=== PATIENT | female | born 1950 | race Caucasian/White ===

== ENCOUNTER 2020-01-17 13:23 | Emergency (ER) | payer MEDICARE, OTHER ==
--- NOTE | 2020-01-17 13:28 | ERPHSYRPT ---
- History of Present Illness Time Seen by Provider: 01/17/20 13:28 Source: patient Exam Limitations: no limitations Physician History: This is a 69-year-old white female who presents with pain to her right lower back that shoots down her buttock into her posterior right hamstring. Last week in the beginning of this week the patient has been doing a lot of yard work lifting twisting turning. She did not fall or have trauma to her back. Denies urinary pressure, denies abdominal pain denies hematuria, dysuria, flank pain. Patient denies any foot drop symptoms or any numbness in the genitalia or perineal area. He describes the pain as an ache in the lower back on the right side and is shooting pain with movement down her right buttock and right hamstring. Method of Injury: bending, lifting, twisted, turning Quality: dull (Ache), sharp, other (Shooting) Back Pain Radiation: buttocks (8), upper legs Severity of Pain-Max: moderate Severity of Pain-Current: moderate Modifying Factors: Improves With: movement Associated Symptoms: muscle spasms, No numbness in legs/feet, No sensory/motor loss, No tingling in legs/feet, No lower back pain Previous symptoms: no prior history Home Medications: Aspirin 81 gm Chew [Baby Aspirin 81 mg Chew] 1 ea DAILY 01/17/20 [History] Levothyroxine Sodium 100 mg DAILY 01/17/20 [History] Simvastatin 20 mg DAILY 01/17/20 [History] Travel Risk - International Travel Have you traveled outside of the country in past 3 weeks: No Have you or anyone close to you been diagnosed with or: No Do your reside in a community with a known COVID-19 case?: Yes If Yes where:: [facility] - Coronavirus Screening Has patient experienced Coronavirus symptoms: No - Review of Systems Constitutional: No Symptoms Eyes: No Symptoms Ears, Nose, & Throat: No Symptoms Respiratory: No Symptoms Cardiac: No Symptoms Abdominal/Gastrointestinal: No Symptoms Genitourinary Symptoms: No Symptoms Musculoskeletal: Back Pain Skin: No Symptoms Neurological: No Symptoms Psychological: No Symptoms Endocrine: No Symptoms Hematologic/Lymphatic: No Symptoms Immunological/Allergic: No Symptoms All Other Systems: Reviewed and Negative - Past Medical History Pertinent Past Medical History: Yes Neurological History: No Pertinent History ENT History: No Pertinent History Cardiac History: No Pertinent History Respiratory History: No Pertinent History Endocrine Medical History: No Pertinent History Musculoskeletal History: No Pertinent History GI Medical History: No Pertinent History History: No Pertinent History Psycho-Social History: No Pertinent History Female Reproductive Disorders: No Pertinent History - Past Surgical History Neuro Surgical History: No Pertinent History Cardiac: No Pertinent History Respiratory: No Pertinent History Gastrointestinal: No Pertinent History Genitourinary: No Pertinent History Musculoskeletal: No Pertinent History Female Surgical History: No Pertinent History - Nursing Vital Signs Nursing Vital Signs: Initial Vital Signs Temperature 97.9 F 01/17/20 13:24 Pulse Rate 85 01/17/20 13:24 Respiratory Rate 18 01/17/20 13:24 Blood Pressure 194/88 01/17/20 13:24 O2 Sat by Pulse Oximetry 97 01/17/20 13:24 Pain Scale Pain Intensity [Right Back] 7 Pain Intensity 7 - Physical Exam General Appearance: no apparent distress, alert, anxiety Eye Exam: PERRL/EOMI, eyes nml inspection Ears, Nose, Throat Exam: normal ENT inspection, moist mucous membranes Neck Exam: normal inspection, non-tender, supple, full range of motion Respiratory Exam: No chest tenderness Gastrointestinal Exam: No tenderness Pelvic Exam: not done Rectal Exam: not done Back Exam: normal inspection, normal range of motion, muscle spasm (Right lumbar region paraspinous muscles), No CVA tenderness, No vertebral tenderness Extremity Exam: normal inspection, normal range of motion, pelvis stable Neurologic Exam: alert, oriented x 3, cooperative, cooker meal II-XII nml as tested, normal mood/affect, nml cerebellar function, nml station & gait Skin Exam: normal color, warm, dry Lymphatic Exam: No adenopathy SpO2 Interpretation: normal - Course Nursing assessment & vital signs reviewed: Yes - Progress Progress: unchanged Progress Note: 01/17/20 13:47 I reviewed the patient's history and performed a physical exam of this patient. Patient did not have any kind of trauma to her back or buttock, pelvic region. It is not likely that she has any fractures, dislocations or subluxation. I did offer her radigraphic studies. She declines at this time. I also offered her to check her urine for infection. She declines at this time. She said she does not have flank pain, dysuria, frequency and she is never had a urinary tract infection per her report. 01/17/20 13:52 Counseled pt/family regarding: diagnosis, need for follow-up - Departure Departure Disposition: Home Clinical Impression: Sciatica Condition: Stable Critical Care Time: No Referrals: AMADO DOUGLAS [Primary Care Provider] - Additional Instructions: Your medications as prescribed. Follow-up at the [facility] orthopedic clinic tomorrow for further evaluation. Return to the emergency department if symptoms worsen or do not improve or follow-up with your primary care physician for further management. Prescriptions: Carisoprodol 350 mg [Soma 350 mg] 350 mg PO Q12H PRN PRN #6 tablet PRN Reason: Muscle Spasms Prednisone 10 mg [Deltasone 10 mg] 10 mg PO TID #12 tablet
[2020-01-17] MEDS ORDERED: Hydromorphone 1 mg/ml Ampule IM ONE (13:54)
[2020-01-17] MEDS ORDERED: ZOFRAN ODT 4 MG PO ONE (13:54)
[2020-01-17] MEDS ORDERED: Zofran 4 MG/2 ML VIAL ONE (14:01)
[2020-01-17] MEDS ORDERED: Hydromorphone 1 mg/ml Ampule ONE (14:02)
[2020-01-17] MEDS ORDERED: DELTASONE 20 MG ONE (14:02)
[2020-01-17] MEDS ORDERED: ZOFRAN ODT 4 MG ONE (14:04)
[2020-01-17 14:28] VITALS: BP 165/75; PULSE 72; O2SAT 98
[2020-01-18] MEDS ORDERED: DELTASONE 20 MG PO ONE (13:55)
== END 2020-01-17 14:28 | disposition home or self-care (01) ==
LOC: ED 13:23
DX: M54.41 Lumbago with sciatica, right side (principal); X50.0XXA Overexertion from strenuous movement or load, initial encounter; X50.9XXA Other and unspecified overexertion or strenuous movements or postures, initial encounter; Y93.9 Activity, unspecified; Y92.9 Unspecified place or not applicable; Y99.9 Unspecified external cause status
CPT/HCPCS: 96372; 99284; J1170; J2405; Q0162; A9270-GY

== ENCOUNTER 2021-07-17 07:37 | Emergency (ER) | payer MEDICARE, OTHER ==
--- NOTE | 2021-07-17 07:56 | ERPHSYRPT ---
- History of Present Illness Time Seen by Provider: 07/17/21 07:56 Historian: patient Exam Limitations: no limitations Physician History: This is a 70-year-old white female who presents with 1 month history of mild substernal central nonradiating chest pressure. Nothing seems to worsen or improve. She is never had this before. In the last 2 days she noticed the pres sure becoming more intense and less intermittent. She has no cough. She has no fever. She has no abdominal pain. Patient does have a history of hypothyroidism, hypercholesterolemia. She is not diabetic and she does not have hypertension. She does not smoke. The patient still has her gallbladder in place. She has never seen a adobe cq developer. Activities at Onset: none Quality: pressure Location: substernal, central Chest Pain Radiation: no radiation Severity of Pain-Max: mild Severity of Pain-Current: mild Modifying Factors: Improves With: nothing Associated Symptoms: denies symptoms Prior Chest Pain/Cardiac Workup: no prior chest pain, no prior cardiac workup Nitro Today/Relief: no nitro taken today Aspirin Treatment Today: no aspirin today, 325 mg x 1, provided by ED Allergies/Adverse Reactions: No Known Drug Allergies Allergy (Verified 07/17/21 08:02) Home Medications: Aspirin 81 gm Chew [Baby Aspirin 81 mg Chew] 1 ea PO HS 01/17/20 [History] Levothyroxine Sodium 100 mg DAILY 01/17/20 [History] Simvastatin 20 mg DAILY 01/17/20 [History] Hx Tetanus, Diphtheria Vaccination/Date Given: No Hx Influenza Vaccination/Date Given: No Hx Pneumococcal Vaccination/Date Given: No Travel Risk - International Travel Have you traveled outside of the country in past 3 weeks: No - Coronavirus Screening Are you exhibiting any of the following symptoms?: No Close contact with a COVID-19 positive Pt in past 14-21 Days: No - Review of Systems Constitutional: No Symptoms Eyes: No Symptoms Ears, Nose, & Throat: No Symptoms Respiratory: No Symptoms Cardiac: Chest Pain (Described as pressure) Abdominal/Gastrointestinal: No Symptoms Genitourinary Symptoms: No Symptoms Musculoskeletal: No Symptoms Skin: No Symptoms Neurological: No Symptoms Psychological: No Symptoms Endocrine: No Symptoms Hematologic/Lymphatic: No Symptoms Immunological/Allergic: No Symptoms All Other Systems: Reviewed and Negative - Past Medical History Pertinent Past Medical History: Yes Neurological History: No Pertinent History ENT History: No Pertinent History Cardiac History: High Cholesterol Respiratory History: No Pertinent History Endocrine Medical History: Hypothyroidism Musculoskeletal History: Other GI Medical History: No Pertinent History History: No Pertinent History Psycho-Social History: No Pertinent History Female Reproductive Disorders: No Pertinent History Other Medical History: SX HX RIGHT ARTHROSCOPY FOR TORN MENSICUS 2 YEARS AGO. - Past Surgical History Past Surgical History: Yes Neuro Surgical History: No Pertinent History Cardiac: No Pertinent History Respiratory: No Pertinent History Gastrointestinal: No Pertinent History Genitourinary: No Pertinent History Musculoskeletal: No Pertinent History Female Surgical History: No Pertinent History Other Surgical History: knee - Social History Smoking Status: Never smoker Exposure to second hand smoke: No Drug Use: none Patient Lives Alone: No - Nursing Vital Signs Nursing Vital Signs: Initial Vital Signs Temperature 98.3 F 07/17/21 07:38 Pulse Rate 82 07/17/21 07:38 Respiratory Rate 24 07/17/21 07:38 Blood Pressure 155/72 07/17/21 07:38 O2 Sat by Pulse Oximetry 98 07/17/21 07:38 Pain Scale Pain Intensity 6 - Physical Exam General Appearance: no apparent distress, alert, anxiety Eye Exam: PERRL/EOMI, eyes nml inspection Ears, Nose, Throat Exam: normal ENT inspection, moist mucous membranes Neck Exam: normal inspection, non-tender, supple, full range of motion Respiratory Exam: normal breath sounds, chest tenderness (Nonradiating substernal central), lungs clear ( chest pressure), airway intact, No respiratory distress Cardiovascular Exam: regular rate/rhythm, normal heart sounds, normal peripheral pulses Gastrointestinal/Abdomen Exam: soft, normal bowel sounds, No tenderness Pelvic Exam: not done Rectal Exam: not done Back Exam: normal inspection, normal range of motion, No CVA tenderness, No vertebral tenderness Extremity Exam: normal inspection, normal range of motion, pelvis stable Neurologic Exam: alert, oriented x 3, cooperative, broth setter II-XII nml as tested, normal mood/affect, nml cerebellar function, nml station & gait, sensation nml Skin Exam: normal color, warm, dry Lymphatic Exam: No adenopathy SpO2 Interpretation: normal O2 Delivery: Room Air - Course Nursing assessment & vital signs reviewed: Yes EKG Interpreted by Me: RATE (77), Sinus Rhythm, NORMAL AXIS, NORMAL INTERVALS, NORMAL QRS, NORMAL ST-T, Other (No acute ischemic changes. No comparison EKG available.) Ordered Tests: Active Orders 24 hr Category Date Time Status EKG-ER Only STAT Care 07/17/21 07:58 Active IV Insertion STAT Care 07/17/21 07:58 Active Pulse Oximetry (ED) STAT Care 07/17/21 07:58 Active CHEST 1 VIEW (PORTABLE) Stat Exams 07/17/21 07:58 Completed CBC W DIFF Stat Lab 07/17/21 07:45 Completed CMP Stat Lab 07/17/21 07:45 Completed D-DIMER QUANTITATIVE Stat Lab 07/17/21 07:45 Completed NT PRO BNP Stat Lab 07/17/21 07:45 Completed PROTIME WITH INR Stat Lab 07/17/21 07:45 Completed T4 (Thyroxine) Stat Lab 07/17/21 07:45 Completed TROPONIN Q3H Lab 07/17/21 07:45 Completed TROPONIN Q3H Lab 07/17/21 11:05 Completed TROPONIN Q3H Lab 07/17/21 14:00 Ordered TROPONIN Q3H Lab 07/17/21 17:00 Ordered TROPONIN Q3H Lab 07/17/21 20:00 Ordered TSH, 3RD Generation Stat Lab 07/17/21 07:45 Completed Medication Summary Discontinued Medications Generic Name Dose Route Start Last Admin Trade Name Freq PRN Reason Stop Dose Admin Aspirin 324 mg 07/17/21 07:58 07/17/21 08:02 Aspirin 81 Mg Tab.Chew PO 07/17/21 07:59 324 mg STAT ONE Administration Lab/Rad Data: Laboratory Result Diagrams 07/17/21 07:45 07/17/21 07:45 Laboratory Results 07/17/21 07/17/21 07/17/21 Range/Units 11:05 07:45 07:45 WBC (4.0-10.5) K/mm3 RBC (4.1-5.4) M/mm3 Hgb (12.0-16.0) gm/dl Hct (35-47) % MCV (78-100) fl MCH (26-32) pg MCHC (32-36) g/dl RDW (11.5-14.0) % Plt Count (150-450) K/mm3 MPV (7.5-11.0) fl Gran % (36.0-66.0) % Eos # (Auto) (0-0.5) Absolute Lymphs (auto) (1.0-4.6) Absolute Monos (auto) (0.0-1.3) Lymphocytes % (24.0-44.0) % Monocytes % (0.0-12.0) % Eosinophils % (0.00-5.0) % Basophils % (0.0-0.4) % Absolute Granulocytes (1.4-6.9) Basophils # (0-0.4) PT 11.6 (9.4-12.5) SECONDS INR 0.98 (0.8-3.0) D-Dimer 228 (215-500) ng/mL Sodium (137-145) mmol/L Potassium (3.5-5.1) mmol/L Chloride (98-107) mmol/L Carbon Dioxide (22-30) mmol/L Anion Gap (5-15) MEQ/L BUN (7-17) mg/dL Creatinine (0.52-1.04) mg/dL Estimated GFR ML/MIN Glucose (74-106) mg/dL Calcium (8.4-10.2) mg/dL Total Bilirubin (0.2-1.3) mg/dL AST (14-36) U/L ALT (0-35) U/L Alkaline Phosphatase (38-126) U/L Troponin I < 0.012 < 0.012 (0.000-0.034) ng/mL NT-Pro-B Natriuret Pep (0-900) pg/mL Serum Total Protein (6.3-8.2) g/dL Albumin (3.5-5.0) g/dL Thyroxine (T4) (5.53-10.96) ug/dL TSH 3rd Generation (0.47-4.68) mIU/L 07/17/21 07/17/21 Range/Units 07:45 07:45 WBC 6.3 (4.0-10.5) K/mm3 RBC 4.78 (4.1-5.4) M/mm3 Hgb 14.3 (12.0-16.0) gm/dl Hct 43.5 (35-47) % MCV 91.0 (78-100) fl MCH 29.9 (26-32) pg MCHC 32.9 (32-36) g/dl RDW 13.5 (11.5-14.0) % Plt Count 192 (150-450) K/mm3 MPV 11.3 H (7.5-11.0) fl Gran % 62.8 (36.0-66.0) % Eos # (Auto) 0.13 (0-0.5) Absolute Lymphs (auto) 1.57 (1.0-4.6) Absolute Monos (auto) 0.61 (0.0-1.3) Lymphocytes % 24.8 (24.0-44.0) % Monocytes % 9.7 (0.0-12.0) % Eosinophils % 2.1 (0.00-5.0) % Basophils % 0.6 (0.0-0.4) % Absolute Granulocytes 3.97 (1.4-6.9) Basophils # 0.04 (0-0.4) PT (9.4-12.5) SECONDS INR (0.8-3.0) D-Dimer (215-500) ng/mL Sodium 141 (137-145) mmol/L Potassium 4.3 (3.5-5.1) mmol/L Chloride 104 (98-107) mmol/L Carbon Dioxide 30 (22-30) mmol/L Anion Gap 10.4 (5-15) MEQ/L BUN 20 H (7-17) mg/dL Creatinine 0.70 (0.52-1.04) mg/dL Estimated GFR > 60.0 ML/MIN Glucose 117 H (74-106) mg/dL Calcium 9.4 (8.4-10.2) mg/dL Total Bilirubin 0.80 (0.2-1.3) mg/dL AST 30 (14-36) U/L ALT 22 (0-35) U/L Alkaline Phosphatase 59 (38-126) U/L Troponin I (0.000-0.034) ng/mL NT-Pro-B Natriuret Pep 81.2 (0-900) pg/mL Serum Total Protein 7.0 (6.3-8.2) g/dL Albumin 4.6 (3.5-5.0) g/dL Thyroxine (T4) 9.11 (5.53-10.96) ug/dL TSH 3rd Generation 1.620 (0.47-4.68) mIU/L - Progress Progress: improved, re-examined Air Movement: good Progress Note: 07/17/21 11:48 Patient states that she no longer has the type of chest pain she was having before. Chest x-ray shows no acute cardiopulmonary process. Medical decision making: This patient states her symptoms have improved and she is not short of breath. She has had negative troponin at 0-hour and at 3-hour. She has no cardiac history or coronary artery disease that has been documented. She does not see a adobe cq developer. We will discharge her to home. She is to call her primary care physician to make arrangements for a follow-up visit and to see a adobe cq developer for further work-up/evaluation. Blood Culture(s) Obtained: No Antibiotics given: No Counseled pt/family regarding: lab results, diagnosis, need for follow-up, rad results - Departure Departure Disposition: Home Clinical Impression: Non-cardiac chest pain Condition: Stable Critical Care Time: No Referrals: AMADO DOUGLAS [Primary Care Provider] - Follow up/PCP as directed Additional Instructions: Take all your medications as prescribed. Follow-up with your primary care physician today by phone to make arrange for follow-up appointment and referral to a adobe cq developer for further evaluation and management.
[2021-07-17] MEDS ORDERED: BABY ASPIRIN 81 MG CHEW PO ONE (07:58)
[2021-07-17 08:11] LABS: Absolute Neutrophil Ct (ANC) 3.97 (1.4-6.9); BASOPHIL % 0.6 % (0.0-0.4); Basophil (Absolute #) 0.04 (0-0.4); Eosinophil % 2.1 % (0.00-5.0); Eosinophil (Absolute #) 0.13 (0-0.5); Hematocrit 43.5 % (35-47); Hemoglobin 14.3 gm/dl (12.0-16.0); Lymphocyte (Absolute #) 1.57 (1.0-4.6); Lymphocytes % 24.8 % (24.0-44.0); Mean Corpuscular Hemoglobin 29.9 pg (26-32); Mean Corpuscular Hgb Concent. 32.9 g/dl (32-36); Mean Platelet Volume 11.3 fl (7.5-11.0); Monocyte (Absolute #) 0.61 (0.0-1.3); Monocytes % 9.7 % (0.0-12.0); Neutrophil % 62.8 % (36.0-66.0); Platelet Count 192 K/mm3 (150-450); Red Blood Count 4.78 M/mm3 (4.1-5.4); Red Cell Distribution Width 13.5 % (11.5-14.0); White Blood Count 6.3 K/mm3 (4.0-10.5)
[2021-07-17 08:24] LABS: INR 0.98 (0.8-3.0); PROTIME 11.6 SECONDS (9.4-12.5)
--- NOTE | 2021-07-17 08:40 | XRAY ---
Indication: Chest pressure. Comparison: None Portable chest demonstrates normal heart and lungs. Bony thorax intact with mild osteopenia and degenerative changes.
[2021-07-17 09:00] LABS: ALBUMIN 4.6 g/dL (3.5-5.0); ALKALINE PHOSPHATASE 59 U/L (38-126); ANION GAP 10.4 MEQ/L (5-15); BLOOD UREA NITROGEN 20 mg/dL (7-17); CHLORIDE 104 mmol/L (98-107); Calcium 9.4 mg/dL (8.4-10.2); Carbon Dioxide 30 mmol/L (22-30); EST GLOMERULAR FILTRATION RATE > 60.0 ML/MIN; Glucose 117 mg/dL (74-106); NT PRO BNP 81.2 pg/mL (0-900); Potassium 4.3 mmol/L (3.5-5.1); SGOT/AST 30 U/L (14-36); SGPT/ALT 22 U/L (0-35); SODIUM 141 mmol/L (137-145); T4 (Thyroxine) 9.11 ug/dL (5.53-10.96)
[2021-07-20 17:01] VITALS: BP 133/69; PULSE 80; O2SAT 97
== END 2021-07-17 12:04 | disposition home or self-care (01) ==
LOC: ED 07:37
DX: R07.89 Other chest pain (principal); E78.00 Pure hypercholesterolemia, unspecified; E03.9 Hypothyroidism, unspecified
CPT/HCPCS: 36000; 36415; 71045; 80053; 83880; 84436; 84443; 84484; 85025; 85379; 85610; 93005; 94760; 99284; A9270-GY

== ENCOUNTER 2022-02-05 06:03 | Day surgery (SDC) | payer MEDICARE, OTHER ==
[2022-02-05] MEDS ORDERED: Lactated Ringers 1,000 ML IV SCH (06:30)
[2022-02-05] MEDS ORDERED: DIPRIVAN 200 MG/20 ML IV ONE (07:01)
[2022-02-05] MEDS ORDERED: Versed 2 MG/2 ML Injection ONE (07:01)
--- NOTE | 2022-02-05 07:42 | OP ---
SURGERY DATE/TIME: 02/05/2022 0700 PREOPERATIVE DIAGNOSIS: Screening exam. POSTOPERATIVE DIAGNOSIS: Sigmoid diverticulosis otherwise normal colon. PROCEDURE: Colonoscopy. SURGEON: Dr. Sriram Mina. ANESTHESIA: MAC. Medications given by anesthesia department. HISTORY: The patient is a 71-year-old white female presenting now for screening colonoscopy. She reports she had one about ten years ago which was normal. The patient was appraised of the risks of the procedure including the risk of perforation, phlebitis, untoward reaction to medication, bleeding and missed lesions. The patient verbalized her understanding and desired to have the procedure performed. DESCRIPTION OF PROCEDURE: The patient was given the medications by the anesthesia department. She had continuous pulse oximetry, ECG monitoring, intermittent blood pressure monitoring during the examination. She was placed in the left lateral decubitus position. A digital rectal examination was performed and revealed normal anal sphincter tone and no masses. The flexible Olympus pediatric colonoscope was used to intubate the rectum. A view of the colon was developed sequentially to the cecum. Upon insertion and withdrawal, including a retroflex view in the rectum, there were noted to be mild to moderate sigmoid diverticulosis otherwise no mucosal lesions were encountered. The scope was removed from the patient who tolerated the procedure well and was sent back to OP recovery in good condition. The prep was noted to be fair to good.
[2022-02-05 07:59] VITALS: PULSE 65
[2022-02-05 08:16] VITALS: BP 118/60; O2SAT 100
== END 2022-02-05 08:20 | disposition home or self-care (01) ==
LOC: SDC 06:03
PROVIDERS: ATTEND Family Medicine
DX: Z12.11 Encounter for screening for malignant neoplasm of colon (principal); K57.30 Diverticulosis of large intestine without perforation or abscess without bleeding
CPT/HCPCS: J2250; J2704

== ENCOUNTER 2023-11-07 03:31 | Emergency (ER) | payer MEDICARE, OTHER ==
--- NOTE | 2023-11-07 03:57 | ERPHSYRPT ---
- History of Present Illness Time Seen by Provider: 11/07/23 03:42 Historian: patient Exam Limitations: no limitations Physician History: For the past 2 days pt has had mid chest pressure and nausea, constant for the past 20.5 hours; denies shortness of air, fever, abdominal pain, vomiting. Aspirin Treatment Today: 81 mg x 4, provided by ED Allergies/Adverse Reactions: No Known Drug Allergies Allergy (Verified 11/07/23 03:37) Home Medications: Aspirin 81 gm Chew [Baby Aspirin 81 mg Chew] 1 ea PO DAILY 01/17/20 [History] Levothyroxine Sodium 100 mcg PO DAILY 01/17/20 [History] Atorvastatin Calcium [Lipitor 20MG Tablet] 20 mg PO HS 11/07/23 [History] Hx Tetanus, Diphtheria Vaccination/Date Given: No Hx Influenza Vaccination/Date Given: No Hx Pneumococcal Vaccination/Date Given: No Travel Risk - Vaccine Status Have you recieved a Covid-19 vaccination: No - Review of Systems Constitutional: No Fever Ears, Nose, & Throat: No Ear Pain, No Throat Pain Respiratory: No Dyspnea Cardiac: Other (chest pressure) Abdominal/Gastrointestinal: Nausea, No Abdominal Pain, No Vomiting Genitourinary Symptoms: No Dysuria Skin: No Rash Neurological: No Headache - Past Medical History Pertinent Past Medical History: Yes Neurological History: No Pertinent History ENT History: No Pertinent History Cardiac History: High Cholesterol, Hypertension Respiratory History: No Pertinent History Endocrine Medical History: Hypothyroidism Musculoskeletal History: Other GI Medical History: No Pertinent History History: No Pertinent History Psycho-Social History: No Pertinent History Female Reproductive Disorders: No Pertinent History Other Medical History: SX HX RIGHT ARTHROSCOPY FOR TORN MENSICUS 2 YEARS AGO. - Past Surgical History Past Surgical History: Yes Neuro Surgical History: No Pertinent History Cardiac: No Pertinent History Respiratory: No Pertinent History Gastrointestinal: No Pertinent History Genitourinary: No Pertinent History Musculoskeletal: No Pertinent History Female Surgical History: No Pertinent History Other Surgical History: right knee arthroscopy-meniscus repair, colonoscopy - Social History Smoking Status: Never smoker Exposure to second hand smoke: No Drug Use: none Patient Lives Alone: No - Nursing Vital Signs Nursing Vital Signs: Initial Vital Signs Temperature 97.2 F 11/07/23 03:39 Pulse Rate 72 11/07/23 03:39 Respiratory Rate 16 11/07/23 03:39 Blood Pressure 162/79 11/07/23 03:39 O2 Sat by Pulse Oximetry 98 11/07/23 03:39 Pain Scale Pain Intensity 7 - Physical Exam General Appearance: alert Eye Exam: PERRL/EOMI Ears, Nose, Throat Exam: TMs normal, pharynx normal Neck Exam: normal inspection Respiratory Exam: normal breath sounds Cardiovascular Exam: normal heart sounds Gastrointestinal/Abdomen Exam: normal bowel sounds Extremity Exam: No pedal edema Neurologic Exam: alert, cooperative Skin Exam: warm, dry - Course EKG Interpreted by Me: RATE (68), Sinus Rhythm, NORMAL AXIS, Other (QTc = 424) - Radiology Exams Chest X-ray Interpretation: Interpreted by me, No Pneumonia Ordered Tests: Active Orders 24 hr Category Date Time Status Geothermal Technician STAT Care 11/07/23 03:53 Active EKG-ER Only STAT Care 11/07/23 03:52 Active IV Insertion STAT Care 11/07/23 03:52 Active Oxygen-ED Only Nasal Cannula 2 lpm Care 11/07/23 03:52 Active Pulse Oximetry (ED) STAT Care 11/07/23 03:52 Active CHEST 2 VIEWS (PA AND LAT) Stat Exams 11/07/23 03:52 Taken AMYLASE Stat Lab 11/07/23 03:48 Completed CBC W DIFF Stat Lab 11/07/23 03:48 Completed CMP Stat Lab 11/07/23 03:48 Completed LIPASE Stat Lab 11/07/23 03:48 Completed MAGNESIUM Stat Lab 11/07/23 03:48 Completed TROPONIN Q4H Lab 11/07/23 03:48 Completed TROPONIN Q4H Lab 11/07/23 08:00 Ordered TROPONIN Q4H Lab 11/07/23 12:00 Ordered Medication Summary Generic Name Dose Route Start Last Admin Trade Name Freq PRN Reason Stop Dose Admin Sodium Chloride 1,000 mls @ 100 mls/hr 11/07/23 04:00 11/07/23 04:22 Sodium Chloride 0.9% 1000 Ml IV 12/07/23 03:59 100 mls/hr .Q10H SKYE Administration Discontinued Medications Generic Name Dose Route Start Last Admin Trade Name Freq PRN Reason Stop Dose Admin Aspirin 324 mg 11/07/23 03:52 11/07/23 04:15 Aspirin 81 Mg Tab.Chew PO 11/07/23 03:53 324 mg STAT ONE Administration Aspirin Confirm 11/07/23 04:12 Aspirin 81 Mg Tab.Chew Administered 11/07/23 04:13 Dose 324 mg .ROUTE .STK-MED ONE Nitroglycerin 0.4 mg 11/07/23 03:52 11/07/23 04:15 Nitroglycerin 0.4 Mg (Ed) 0.4 Mg Tab.Subl SL 11/07/23 03:53 0.4 mg STAT ONE Administration Nitroglycerin Confirm 11/07/23 04:13 Nitroglycerin 0.4 Mg (Ed) 0.4 Mg Tab.Subl Administered 11/07/23 04:14 Dose 0.4 mg SL .STK-MED ONE Lab/Rad Data: Laboratory Result Diagrams 11/07/23 03:48 11/07/23 03:48 Laboratory Results 11/07/23 11/07/23 11/07/23 Range/Units 03:48 03:48 03:48 WBC 6.7 (4.0-10.5) x10^3/uL RBC 4.55 (4.1-5.4) x10^6/uL Hgb 13.6 (12.0-16.0) g/dL Hct 40.7 (35-47) % MCV 89.5 (78-100) fL MCH 29.9 (26-32) pg MCHC 33.4 (32-36) g/dL RDW 12.8 (11.5-14.0) % Plt Count 183 (150-450) x10^3/uL MPV 10.9 (7.5-11.0) fL Gran % 66.0 (36.0-66.0) % Immature Gran % (Auto) 0.4 (0.00-0.4) % Nucleat RBC Rel Count 0.0 (0.00-0.1) % Eos # (Auto) 0.13 (0-0.5) x10^3/uL Immature Gran # (Auto) 0.03 (0.00-0.03) x10^3u/L Absolute Lymphs (auto) 1.19 (1.0-4.6) x10^3/uL Absolute Monos (auto) 0.89 (0.0-1.3) x10^3/uL Absolute Nucleated RBC 0.00 (0.00-0.01) x10^3u/L Lymphocytes % 17.7 L (24.0-44.0) % Monocytes % 13.3 H (0.0-12.0) % Eosinophils % 1.9 (0.00-5.0) % Basophils % 0.7 (0.0-0.4) % Absolute Granulocytes 4.42 (1.4-6.9) x10^3/uL Basophils # 0.05 (0-0.4) x10^3/uL Sodium 138 (135-145) mmol/L Potassium 4.6 (3.5-5.1) mmol/L Chloride 106 (98-107) mmol/L Carbon Dioxide 23 (22-30) mmol/L Anion Gap 13.6 (5-15) MEQ/L BUN 15 (7-17) mg/dL Creatinine 0.98 (0.52-1.04) mg/dL Estimated GFR 61.7 ML/MIN Glucose 114 H (74-106) mg/dL Calcium 9.2 (8.4-10.2) mg/dL Magnesium 2.2 (1.6-2.3) mg/dL Total Bilirubin 0.50 (0.2-1.3) mg/dL AST 23 (14-36) U/L ALT 19 (0-35) U/L Alkaline Phosphatase 79 (38-126) U/L Troponin I < 0.012 (0.000-0.034) ng/mL Serum Total Protein 7.2 (6.3-8.2) g/dL Albumin 4.4 (3.5-5.0) g/dL Amylase 81 (30-110) U/L Lipase 57 (23-300) U/L - Progress Progress Note: 11/07/23 04:52 Pt had bradycardia to 35. Will transfer pt to a hospital with operator lights availability. 11/07/23 05:16 2nd EKG: rate=55, sinus bradycardia, QTc = 418. Discussed with : Other (Dr. Beasley accepted pt for transfer to [facility] ER.) Counseled pt/family regarding: lab results, diagnosis, rad results Medical Desision Making - Diagnostic Testing Diagnostic test were ordered, analyzed, and reviewed by me: Yes Radiological Interpretation: Interpreted by me - Departure Departure Disposition: Transfer ([facility] ER) Clinical Impression: Chest Pressure, Bradycardia Condition: Stable Critical Care Time: Yes Critical Care Time(excluding separately billable procedures): Critical 30-74 mins Referrals: AMADO DOUGLAS [Primary Care Provider] - Follow up/PCP as directed
[2023-11-07 04:01] VITALS: TEMP 97.2
[2023-11-07] MEDS ORDERED: BABY ASPIRIN 81 MG CHEW ONE (04:12)
[2023-11-07] MEDS ORDERED: Sodium Chloride 0.9% 1000 ML 1,000 ML ONE (04:13)
[2023-11-07] MEDS ORDERED: Nitrostat 0.4 MG (ED) SL ONE (04:13)
[2023-11-07] MEDS: Nitrostat 0.4 MG (ED) SL ONE (04:15)
[2023-11-07] MEDS: BABY ASPIRIN 81 MG CHEW PO ONE (04:15)
[2023-11-07] MEDS: Sodium Chloride 0.9% 1000 ML 1,000 ML IV SCH (04:22)
[2023-11-07 04:23] LABS: Absolute Neutrophil Ct (ANC) 4.42 x10^3/uL (1.4-6.9); BASOPHIL % 0.7 % (0.0-0.4); Basophil (Absolute #) 0.05 x10^3/uL (0-0.4); Eosinophil % 1.9 % (0.00-5.0); Eosinophil (Absolute #) 0.13 x10^3/uL (0-0.5); Hematocrit 40.7 % (35-47); Hemoglobin 13.6 g/dL (12.0-16.0); IMMATURE GRAN # 0.03 x10^3u/L (0.00-0.03); IMMATURE GRAN % 0.4 % (0.00-0.4); Lymphocyte (Absolute #) 1.19 x10^3/uL (1.0-4.6); Lymphocytes % 17.7 % (24.0-44.0); Mean Cell Volume 89.5 fL (78-100); Mean Corpuscular Hemoglobin 29.9 pg (26-32); Mean Corpuscular Hgb Concent. 33.4 g/dL (32-36); Mean Platelet Volume 10.9 fL (7.5-11.0); Monocyte (Absolute #) 0.89 x10^3/uL (0.0-1.3); Monocytes % 13.3 % (0.0-12.0); Platelet Count 183 x10^3/uL (150-450); Red Blood Count 4.55 x10^6/uL (4.1-5.4); Red Cell Distribution Width 12.8 % (11.5-14.0); White Blood Count 6.7 x10^3/uL (4.0-10.5)
[2023-11-07 04:40] LABS: ALBUMIN 4.4 g/dL (3.5-5.0); ANION GAP 13.6 MEQ/L (5-15); BILIRUBIN,TOTAL 0.5 mg/dL (0.2-1.3); Calcium 9.2 mg/dL (8.4-10.2); Creatinine 1 0.98 mg/dL (0.52-1.04); EST GLOMERULAR FILTRATION RATE 61.7 ML/MIN; MAGNESIUM 2.2 mg/dL (1.6-2.3); Potassium 4.6 mmol/L (3.5-5.1); Total Protein 7.2 g/dL (6.3-8.2)
[2023-11-07 05:42] VITALS: BP 136/84; PULSE 68; RESP 16; O2SAT 99
--- NOTE | 2023-11-07 08:41 | XRAY ---
Indication: Chest pressure. Comparison: July 17, 2021 PA/lateral chest remains inflated and clear. Heart not enlarged again with small mediastinal calcified node and mitral valve calcifications. Bony thorax intact again with osteopenia and degenerative changes. Impression: Continued nonacute chest with chronic features.
== END 2023-11-07 05:23 | disposition short-term general hospital (02) ==
LOC: ED 03:31
DX: R00.1 Bradycardia, unspecified (principal); R07.9 Chest pain, unspecified; R11.0 Nausea; Z79.899 Other long term (current) drug therapy; E78.5 Hyperlipidemia, unspecified; I10 Essential (primary) hypertension
CPT/HCPCS: 36000; 36415; 71046; 80053; 82150; 83690; 83735; 84484; 85025; 93005; 93041; 94760; 99285; 99291; A9270-GY